=== PATIENT | male | born 1985 | race Hispanic/Latino ===

== ENCOUNTER 2020-09-16 09:34 | Emergency (ER) | payer SELFPAY ==
[2020-09-16] MEDS ORDERED: Ondansetron PF 4 MG/2 ML Vial ONE (10:15)
[2020-09-16 10:51] LABS: Hemoglobin 17.8 g/dL (14.0-18.0); Mean Corpuscular HGB CONC 35.3 g/dL (32.0-36.0); Mean Corpuscular Hemoglobin 32.6 pg (27.0-31.0); Mean Corpuscular Volume 92.4 fL (78.0-98.0); Red Blood Cell (RBC) Count 5.47 mill/uL (4.70-6.10)
[2020-09-16 10:53] LABS: ALT (SGPT) 94 U/L (8-55); AST (SGOT) 83 U/L (5-34); Albumin 4.3 g/dL (3.5-5.0); Alkaline Phosphatase 131 U/L (40-110); Anion Gap 18 mmol/L (10-20); BUN (Urea Nitrogen) 8 mg/dL (8.9-20.6); Bilirubin, Total 0.9 mg/dL (0.2-1.2); Calc. Creatinine Clearance 0 mL/min (70-130); Calcium 9.1 mg/dL (7.8-10.44); Carbon Dioxide 19 mmol/L (22-29); Chloride 101 mmol/L (98-107); Globulin 5.1 g/dL (2.4-3.5); Glucose 279 mg/dL (70-105); Lipase 21 U/L (8-78); Potassium 3.4 mmol/L (3.5-5.1); Protein, Total 9.4 g/dL (6.0-8.3); Sodium 135 mmol/L (136-145)
[2020-09-16 11:05] LABS: #Eosinphils 0.1 thou/uL (0.0-0.7); #Lymphocytes 2.8 thou/uL (1.20-3.40); #Neutrophils 9.4 thou/uL (1.40-6.50); %Basophils 0.4 % (0.0-1.0); %Eosinophils 0.5 % (0.0-10.0); %Lymphocytes 21.2 % (21.0-51.0); %Monocytes 7.4 % (0.0-10.0); %Neutrophils 70.6 % (42.0-75.0); MDiff Complete? YES; Mean Platelet Volume 10.8 fL (7.4-10.4); Platelet Count 117 thou/uL (130-400); Platelet Morphology Comment Appears Decreased; Polychromasia SLIGHT = 2-3 cells (100X) (0-2/hpf); Vacuoles SLIGHT; White Blood Cell (WBC) Count 13.3 thou/uL (4.8-10.8)
[2020-09-16 12:52] LABS: Bilirubin Negative (Negative); Blood, Urine Negative (Negative); Clarity Clear (Clear); Glucose, Urine (Dipstick) Greater than 1000 mg/dL (Negative); Ketone, Urine 60 mg/dL (Negative); Leukocyte Negative Leu/uL (Negative); Mucous/LPF 1+ LPF (<2+); Nitrite Negative (Negative); Protein, Urine (Dipstick) 70 mg/dL (Neg-Trace); RBC/HPF 0-3 HPF (0-3); Specific Gravity, Urine 1.022 (1.002-1.036); Squamous Epithelial 0-3 HPF (0-3); Urobilinogen Normal mg/dL (Less than 2); pH, Urine 5.5 (5.0-9.0)
[2020-09-16 13:06] LABS: Bacteria/HPF Rare-Few HPF (None Seen)
--- NOTE | 2020-09-16 13:24 | CT ---
CT ABDOMEN AND PELVIS WITH IV CONTRAST: Date: 09/16/2020 HISTORY: Nausea, diarrhea, and vomiting. COMPARISON: None. FINDINGS: The lung bases are unremarkable. A small hiatal hernia is present. The spleen is enlarged, measuring 15.0 cm in length. There is fatty infiltration of the liver without focal mass or abnormal biliary du ctal dilatation. There is mild irregularity to the liver surface. No calcified gallstones are seen. The pancreas, adrenal glands, and kidneys are normal. No free air, free fluid, or lymphadenopathy is seen in the abdomen or pelvis. The small bowel loops are not abnormally dilated. A normal appearing a ppendix is present. There is sigmoid diverticulosis without diverticulitis. There is no evidence of aneurysmal dilatation of the abdominal aorta. There are mild degenerative agatha nges in the spine. IMPRESSION: 1. Fatty liver with probable cirrhosis. 2. Splenomegaly. 3. Small hiatal hernia. 4. Sigmoid diverticulosis. 5. No evidence of high grade bowel obstruction. POS: OFF
[2020-09-16] MEDS ORDERED: Iopamidol-370 76% 500 ML 1 ML ONE (13:35)
[2020-09-16 13:37] LABS: Base Excess-Venous -2.6 mmol/L (-2.0 to 3.0); Bicarbonate (HCO3v) 23.1 mmol/L (22.0-28.0); CO2 Tension (PvCO2) 42.3 mmHg (40.0-50.0); Calcium, Ionized 1.04 mmol/L (1.15-1.33); Chloride 108 mmol/L (98-107); Hemoglobin - Calc 17.3 g/dL (14.0-18.0); Potassium 3.9 mmol/L (3.5-5.1); Sodium 141 mmol/L (138-145); T. Carbon Dioxide 24.4 mmol/L (22.0-28.0); vO2 Saturation-calc 76.1 % (60.0-85.0)
[2020-09-16] MEDS ORDERED: Morphine 4 MG/ML VIAL ONE (14:37)
[2020-09-16] MEDS ORDERED: Acetaminophen 500 MG TAB ONE (15:57)
[2020-09-16] MEDS ORDERED: Ketorolac Tromethamine 30 MG/ML VIAL ONE (15:57)
== END 2020-09-16 16:49 | disposition home or self-care (01) ==
LOC: ERS 09:34
DX: R11.2 Nausea with vomiting, unspecified (principal); R19.7 Diarrhea, unspecified; R73.9 Hyperglycemia, unspecified; R10.84 Generalized abdominal pain
CPT/HCPCS: 74177; 80053; 81003; 81015; 82330; 82803; 83690; 85025; 96361; 96372; 96374; 96375; J0500; J1885; J2270; J2405; Q9967